=== PATIENT | female | born 2000 | race Caucasian/White ===

== ENCOUNTER 2022-07-20 14:09 | Outpatient (REF) | payer MEDICAID, SELFPAY ==
--- NOTE | ~2022-07-20 | XR_ITS ---
EXAMINATION: XR FOOT, LEFT CLINICAL INFORMATION: Left 3rd toe pain COMPARISON: None TECHNIQUE: AP, lateral, and oblique views of the left foot. FINDINGS: The bones and soft tissues are normal. No fracture. Alignment is anatomic. Joint spaces are maintained. XR/XR foot LT min 3V IMPRESSION: Normal left foot.
== END 2022-07-20 14:10 | disposition home or self-care (01) ==
LOC: HO.XRAY 14:09
PROVIDERS: PCP Registered Nurse; Visit Provider Registered Nurse
DX: M79.672 Pain in left foot (principal)
CPT/HCPCS: 73630

== ENCOUNTER 2023-02-08 11:26 | Outpatient (REF) | payer MEDICAID, SELFPAY ==
[2023-02-08 13:37] LABS: MANUAL DIFF FLAG NO
[2023-02-08 13:58] LABS: Basophils Absolute Auto 0.1 X10*3/uL (0.0-0.2); Eosinophils Absolute Auto 0.4 X10*3/uL (0.0-0.4); Eosinophils Percent Auto 8.8 % (0-4); Hematocrit 35.8 % (37.0-47.0); Imm Gran Abs Auto 0.01 X10*3/uL (0.00-0.03); Imm Gran Pct Auto 0.2 % (0.0-0.4); Lymphocytes Percent Auto 46.3 % (20-40); Mean Corpuscular HGB Conc 30.7 g/dl (31.0-35.0); Mean Corpuscular Hemoglobin 25.2 pg (27.0-33.0); Mean Corpuscular Volume 82.1 fL (80.0-98.0); Mean Platelet Volume 11.7 fL (9.4-12.3); Monocytes Absolute Auto 0.4 X10*3/uL (0.1-1.2); Monocytes Percent Auto 8.8 % (2-11); Neutrophils Absolute Auto 1.5 x10*3/uL (2.0-8.3); Neutrophils Percent Auto 33.9 % (45-73); Platelet Count 330 X10*3/uL (160-400); Red Blood Count 4.36 X10*6/uL (4.20-5.50); Red Cell Distribution Width 16.9 % (11.0-16.0); White Blood Count 4.4 X10*3/uL (4.8-10.8)
[2023-02-08 14:24] LABS: Alanine Aminotransferase 10 U/L (0-31); Albumin Level 4.3 g/dL (3.5-5.0); Alkaline Phosphatase 52 U/L (39-117); Anion Gap 15 (12-20); Aspartate Amino Transferase 13 U/L (5-31); Bilirubin Total 0.4 mg/dL (0.0-1.0); Blood Urea Nitrogen 10 mg/dL (9-16); Calcium 9.3 mg/dL (8.4-10.2); Carbon Dioxide 23 mmol/L (22-29); Chloride 105 mmol/L (96-108); Estimated Glomerular Filt Rate > 60; Glucose Random 53 mg/dL (60-115); Iron 35 mcg/dL (30-160); Percent Iron Saturation 9 % (15-50); Potassium 3.7 mmol/L (3.3-5.1); Sodium 139 mmol/L (135-145); Total Iron Binding Capacity 373 mcg/dL (228-428); Total Protein 7.7 g/dL (6.5-8.0); Unsaturated Iron Binding 338 ug/dL
== END 2023-02-08 11:27 | disposition home or self-care (01) ==
LOC: HO.HHCL 11:26
PROVIDERS: Visit Provider Registered Nurse
DX: D50.0 Iron deficiency anemia secondary to blood loss (chronic) (principal); R63.4 Abnormal weight loss
CPT/HCPCS: 36415; 80053; 83540; 85025

== ENCOUNTER 2024-09-10 14:55 | Outpatient (REF) | payer MEDICAID, SELFPAY ==
[2024-09-10 16:13] LABS: MANUAL DIFF FLAG NO
[2024-09-10 16:42] LABS: Basophils Absolute Auto 0.1 X10*3/uL (0.0-0.2); Basophils Percent Auto 1.8 % (0-2); Eosinophils Absolute Auto 0.6 X10*3/uL (0.0-0.4); Eosinophils Percent Auto 15.9 % (0-4); Hematocrit 34.1 % (37.0-47.0); Hemoglobin 10.5 g/dl (12.0-16.0); Imm Gran Abs Auto 0.01 X10*3/uL (0.00-0.03); Imm Gran Pct Auto 0.3 % (0.0-0.4); Lymphocytes Absolute Auto 1.5 X10*3/uL (1.2-4.9); Lymphocytes Percent Auto 38.5 % (20-40); Mean Corpuscular HGB Conc 30.8 g/dl (31.0-35.0); Mean Corpuscular Hemoglobin 24.8 pg (27.0-33.0); Mean Corpuscular Volume 80.4 fL (80.0-98.0); Mean Platelet Volume 11.7 fL (9.4-12.3); Monocytes Absolute Auto 0.4 X10*3/uL (0.1-1.2); Monocytes Percent Auto 9.4 % (2-11); Neutrophils Absolute Auto 1.3 x10*3/uL (2.0-8.3); Neutrophils Percent Auto 34.1 % (45-73); Platelet Count 248 X10*3/uL (160-400); Red Blood Count 4.24 X10*6/uL (4.20-5.50); White Blood Count 3.8 X10*3/uL (4.8-10.8)
[2024-09-10 17:04] LABS: Cholesterol 122 mg/dL (<200); HDL Cholesterol 52 mg/dL (>40); LDL Cholesterol Calculated 57 mg/dL (<100); Triglycerides 65 mg/dL (<150)
[2024-09-10 17:20] LABS: Ferritin 5 ng/mL (10-122)
--- OUTSIDE RECORDS SUMMARY | 2024-09-10 17:31 | XMS_ITS | Encounter Summary ---
Author Organization [employer] Address [address] 7[address] [place] [address] Care Team Providers Care Director Of Search Engine Marketing Name Role Phone [place] [facility] AUTOMOTIVE DETAILER Primary Care Provider [phone] Reason for Visit * Reason Comments Med Refill Encounter Details Date Type Department Care Team ([facility] st Contact Info) Description 05/02/2023 Refill [facility] [address] [place] [address] April Gaviria MD [address] [place], [place] [id number] Social History Tobacco Use Types Packs/Day Years Used Date Smoking Tobacco: Never Smokeless Tobacco: Never Alcohol Use Standard Drinks/Week Comments Never 0 (1 standard drink = 0.6 oz pur e alcohol) Alcohol Answer Date Recorded Frequency of Alcohol Consumption Not on file 04/06/2023 Average Number of Drinks Not on file 023 Frequency of Binge Drinking Not on file 03/27 Score 0 04/06/2023 Depression Answer Date Recorded Patient Health Questionnaire-9 Score 0 04/06/2023 Housing Stability Answer Date Recorded What is your housing situation today? I have leti harrison 04/18/[address] you li ve. Do you have problems with any of the following? None of the above 04/18/2023 Food Insecurity Answer Date Recorded Within the past 12 months, y ou worried that your food would run out before you got money to buy more: Never True 04/18/2023 Within the past 12 months,th e food you bought just didn't last and you didn't have enough money to get more: Never True Transportation Answer Date Recorded In the past 12 months, has l ack of transportation kept you from medical appts, meetings, work or from getting things needed for daily living? No 04/18/2023 Utilities Answer Date Recorded In the past 12 months, has t he electric, gas, oil or water company threatened to shut off services in your home? No 04/18/2023 Depression Answer Date Recorded Patient Health Questionnaire-2 Score 0 04/06/2023 Comments Unknown Sex and Gender Information Value Date Recorded Sex Assigned at Female 04/26/2022 10:18 AM EDT Legal Sex Female 10:18 AM EDT Gender Identity Female 04/26/2022 10:18 AM EDT Sexual Orientation Choose not to disclose 2021 10:18 AM EDT documented as of this encounter Plan of Treatment Not on file documented as of this encounter Visit Diagnoses Not on filedocumented in this encounter Additional Health Concerns Assessment Noted Time PHQ-9 Depression Total Score: 0 04/06/20 10:05 AM EDT documented as of this encounter Care Teams Director Of Search Engine Marketing Relationship Specialty Start Date End Date Carolina Rodriguez FNP [address] [place] [phone] PCP - General Family Medicine 01/20/22 documented as of this encounter
--- OUTSIDE RECORDS SUMMARY | 2024-09-10 17:31 | XMS_ITS | Encounter Summary ---
Author Organization [employer] Address [address] [facility] 7t [place] [address] Care Team Providers Care Suspender Maker Name Role Phone Carolina Rodriguez ENCODING CLERK Primary Care Provider [phone] Encounter Details Date Type Department Care Team (Late st Contact Info) Description 10/06/2022 Orders Only [facility] [address] [place], [place] [phone] Reena Landaverde LPN Social History Tobacco Use Types Packs/Day Years Used Date Smoking Tobacco: Never Smokeless Tobacco: Never Alcohol Use Standard Drinks/Week Comments Never 0 (1 standard drink = 0.6 oz pur e alcohol) PHQ-2 Answer Date Recorded Patient Health Questionnaire-2 Score 0 07/13/2022 Comments Unknown Sex and Gender Information Value [...] Noted Time PHQ-9 Depression Total Score: 0 07/13/19 23 2:17 PM EST documented as of this encounter Care Teams Suspender Maker Relationship Specialty Start Date End Date Carolina Rodriguez FNP [address] [place] [address] PCP - General Family Medicine 01/20/22 documented as of this encounter
--- OUTSIDE RECORDS SUMMARY | 2024-09-10 17:31 | XMS_ITS | Encounter Summary ---
Author Organization [employer] Address [address] 7[address] [place] [address] Care Team Providers Care Political Theory Professor Name Role Phone [facility] SECOND WORKER Primary Care Provider [phone] Encounter Details Date Type Department Care Team (Latest Contact Info) Description 09/10/2024 Travel Social History Tobacco Use Types Packs/Day Years [...] Date Recorded Patient Health Questionnaire-9 Score 0 09/10/2024 Patient Health Questionnaire-9 Score 0 09/10/2024 Last PHQ-9: Questionnaire Data Not on file 0 09/10/2024 Housing Stability Answer Date Recorded What is your housing situation today? I have leti christy 07/13/[address] you li ve. Do you have problems with any of the following? Pests such as bugs, ants, or mice 07/13/2023 Food Insecurity Answer Date Recorded Within the [...] Date Recorded Patient Health Questionnaire-2 Score 0 09/10/2024 Comments No Sex and Gender Information Value Date Recorded [...] Noted Time PHQ-9 Depression Total Score: 0 09/11/19 25 2:06 PM EDT documented as of this encounter Care Teams Political Theory Professor Relationship Specialty Start Date End Date Carolina Rodriguez FNP [address] [place] [address] PCP - General Family Medicine 01/20/22 documented as of this encounter
--- OUTSIDE RECORDS SUMMARY | 2024-09-10 17:31 | XMS_ITS | Encounter Summary ---
Author Organization [employer] Address [address] [facility] 7t [place] [address] Care Team Providers Care Cloud Systems Administrator Name Role Phone [facility] STORE STOCK HELP Primary Care Provider [phone] Reason for Visit * Reason Comments Med Refill Encounter Details Date Type Department Care Team ([facility] st Contact Info) Description 08/15/2024 Refill [facility] [address] [place] [address] Neida Craft MD [address] [place], [place] [phone] Ingrown toenail of left foot Social History Tobacco Use Types Packs/Day Years [...] Date Recorded Patient Health Questionnaire-9 Score 0 09/07/2023 Patient Health Questionnaire-9 Score 0 09/07/2023 Last PHQ-9: Questionnaire Data Not on file 0 09/07/2023 Housing Stability Answer Date Recorded What is your housing situation today? I have leti sing 07/13/[address] you li [...] Date Recorded Patient Health Questionnaire-2 Score 0 09/07/2023 Comments Unknown Sex and Gender Information Value Date Recorded Sex Assigned at Female 04/26/2022 10:18 AM EDT Legal Sex Female 10:18 AM EDT Gender Identity Female 04/26/2022 10:18 AM EDT Sexual Orientation Choose not to disclose 2021 10:18 AM EDT documented as of this encounter Plan of Treatment Not on file documented as of this encounter Visit Diagnoses Diagnosis Ingrown toenail of left foot documented in this encounter Additional Health Concerns Assessment Noted Time PHQ-9 Depression Total Score: 0 09/07/19 24 2:18 PM EDT documented as of this encounter Care Teams Cloud Systems Administrator Relationship Specialty Start Date End Date Carolina Rodriguez FNP [address] [place] [phone] PCP - General Family Medicine 01/20/22 documented as of this encounter
--- OUTSIDE RECORDS SUMMARY | 2024-09-10 17:31 | XMS_ITS | Encounter Summary ---
Author Organization [employer] Address [address] [facility] 7t [place] [address] Care Team Providers Care Speck Dyer Name Role Phone [facility] Primary Care Provider [phone] Reason for Visit * Reason Comments Pre-visit Planning (Unable to reach for PVP screening and or LVM) Encounter Details Date Type Department Care Team ([facility] st Contact Info) Description 09/03/2024 Patient Outreach [facility] [address] [place] [address] [facility] [address] [place] [address] Pre-visit Planning ((Unable to reach for PVP screening and or LVM)) Social History Tobacco Use Types Packs/Day Years [...] housing situation today? I have leti harrison 07/13/[address] you li [...] AM EDT documented as of this encounter Progress Notes * Ruthann Bautista - 09/03/2024 9:39 AM EDT CC Ruthann placed outbound call to patient to complete pre-visit planning. No answer at this time. Patient name and were not confirmed. CC unable to leave a voice message. documented in this encounter Plan of Treatment Not on file documented as of this encounter Visit Diagnoses Not on filedocumented in this encounter Additional Health Concerns Assessment Noted Time PHQ-9 Depression Total Score: 0 09/07/19 24 2:18 PM EDT documented as of this encounter Care Teams Speck Dyer Relationship Specialty Start Date End Date Carolina Rodriguez FNP [address] [place] [phone] PCP - General Family Medicine 01/20/22 documented as of this encounter
--- OUTSIDE RECORDS SUMMARY | 2024-09-10 17:31 | XMS_ITS | Clinical Summary ---
Author Organization [employer] Address [address] [facility] 7t [place] [address] Care Team Providers Care Research & Analytics Manager Name Role Phone [facility] Primary Care Provider [phone] Allergies No known active allergies Medications ferrous gluconate (Fergon) 324 (38 Fe) MG tabletIndicatio ns:Menorrhagia with regular cycle Take 1 tablet (324 mg) by mouth in the morning. 90 tablet 1 09/07/19 24 Active Arnuity Ellipta 100 MCG/ACT inhaler INHALE 1 PUFF BY MOUTH EVERY DAY AT THE SAME TIME RINSE MOUTH AFTER USING 30 each 08/15/19 25 Active cetirizine (ZyrTEC) 10 MG tabletIndicatio ns:Mild persistent asthma without complication Take 1 tablet (10 mg) by mouth at bedtime. TAKE 1 TABLET BY MOUTH EVERY DAY NEEDED FOR ALLERGIES 90 tablet 09/11/19 25 Active albuterol (Ventolin HFA) 108 (90 Base) MCG/ACT inhalerIndicati ons:Mild persistent asthma without complication INHALE 2 PUFFS BY MOUTH EVERY 4 HOURS NEEDED FOR WHEEZING OR SHORTNESS OF BREATH 18 g 09/11/19 25 Active cetirizine (ZyrTEC) 10 MG tablet Take 1 tablet (10 mg) by mouth at bedtime. TAKE 1 TABLET BY MOUTH EVERY DAY NEEDED FOR ALLERGIES 90 tablet 01/20/20 24 025 Discontinued(Re order (will not trigger notification to Pharmacy)) Arnuity Ellipta 100 MCG/ACT inhaler INHALE 1 PUFF BY MOUTH EVERY DAY AT THE SAME TIME. RINSE MOUTH AFTER USING. 13 each 02/17/20 24 025 Discontinued albuterol (Ventolin HFA) 108 (90 Base) MCG/ACT inhalerIndicati ons:Mild persistent asthma without complication INHALE 2 PUFFS BY MOUTH EVERY 4 HOURS NEEDED 18 g 02/17/20 24 025 Discontinued albuterol (Ventolin HFA) 108 (90 Base) MCG/ACT inhalerIndicati ons:Mild persistent asthma without complication INHALE 2 PUFFS BY MOUTH EVERY 4 HOURS NEEDED FOR WHEEZING OR SHORTNESS OF BREATH 18 g 08/15/19 25 025 Discontinued(Re order (will not trigger notification to Pharmacy)) Active Problems Problem Noted Date Diagnosed Date Allergic rhinitis 02/07/2023 Iron deficiency anemia 07/19/2022 Overview (07/19/2022): ?? Seen by Dr. Downs in heme/onc 01/2022 d/t reported family hx of bleeding disorer. Negative von willebrand work up. Per visit note low suspicion for coagulopathy and no further evaluation indicated. Menorrhagia with regular cycle 07/19/2022 Overview (09/07/2023): June07/16mcg daily-discontinued d/t side effects Oral iron supplementation Cognitive developmental delay 07/13/2022 Vitamin D deficiency 07/13/2022 Mild persistent asthma 09/11/2015 Overview (02/17/2023): ?? Flovent b.i.d ?? Albuterol PRN Encounters Date Type Department Care Team Description 09/10/2024 2:00 PM EDT Office Visit [facility] [address] [place] [address] Carolina Rodriguez FNP Iron deficiency anemia due to chronic blood loss (Primary Dx); Mild persistent asthma without complication; Healthcare maintenance; Encounter for immunization 09/10/2024 Travel 09/07/2024 Population Health Risk Score [facility] Department [address] [phone] Provider, Population Health Generic 09/03/2024 Patient Outreach [facility] [address] [place] [address] Carolina Rodriguez FNP Pre-visit Planning ((Unable to reach for PVP screening and or LVM)) 08/15/2024 Refill [facility] [address] [place] [address] Neida Craft MD Ingrown toenail of left foot 08/15/2024 Refill [facility] [address] [facility] [place] [address] Carolina Rodriguez FNP Mild persistent asthma without complication from Last 3 Months Immunizations Name Administration Dates Next Due DTaP, 5 pertussis antigens 05/26/2004,,01/03/2003,10/30,2002 HPV, Quadrivalent 06/11/2014,02/05/2014,12/07/19 14 Hep A, ped/adol, 2 dose 07/03/2015,08/01/2014 Hep B, Adolescent or Pediatric 8,01/03/2003,2002,10/30 Hib (HbO) 07/30/2003,2002,2002 IPV 05/26/2009, 3,2002,06/28 Influenza injectable quadriv alent preservative free 07/13/2022,07/07/2020,04/17/2018,07/26,07/03/2015,06/11/2014 Influenza, Split (incl. rebecca fied surface antigen) 04/18/2013 Influenza, seasonal, injecta ble, preservative free 09/10/2024 MMR 05/26/2009,05/28/2003 Meningococcal MCV4P ACYW-135 12/13/2018,07/03/19 16 Pneumococcal Conjugate PCV 7 2002,08/31/19 03,2002 Tdap 09/10/2024,12/06/2013 Varicella 05/26/2009,05/28/2003 Social History Tobacco Use Types Packs/Day Years Used Date Smoking Tobacco: Never Smokeless Tobacco: Never Tobacco Cessation:Counseling Given: Not Answered Alcohol Use Standard Drinks/Week Comments Never 0 [...] not to disclose 2021 10:18 AM EDT Last Filed Vital Signs Vital Sign Reading Time Taken Comments Blood Pressure 127/70 09/10/2024 2:00 PM EDT Pulse 85 09/10/2024 2:00 PM EDT Temperature 36.4 ??C (97.6 ??F) 09/10/2024 2:00 PM ED T Respiratory Rate 18 09/10/2024 2:00 PM EDT Oxygen Saturation 98% 09/10/2024 2:00 PM EDT Inhaled Oxygen Concentration - - Weight 53 kg (116 lb 12.8 oz) 09/10/2024 2:00 PM EDT Height 160 cm (5' 3 ) 09/10/2024 2:00 PM EDT Body Mass Index 20.69 09/10/2024 2:00 PM EDT Plan of Treatment Health Maintenance Due Date Last Done Comments Chlamydia and Gonorrhea Screening 2002 HIV Screening 2002 Alcohol/Substance Use Screening 2014 Family Planning (PISQ) 2017 Hepatitis C Screening 2020 Pneumococcal Vaccine: Pediatrics (0 to 5 Years) and At-Risk Patients (6 to 49) Years) (1 of 2 - PCV) 2021 2002, 2002, 2002 Pap Smear 2023 COVID-19 Vaccine ( season) 2024 08/11/2021, 12/09/2020, 11/11/2020 SDOH Screening 08/30/2024 08/31/2023 Depression Screening 09/10/2025 09/10/2024, 09/11/19 25 Tobacco Screening 09/10/2025 09/10/2024 DTaP/Tdap/Td Vaccines (7 - Td or Tdap) 09/10/2034 09/10/2024, 12/06/2013, 05/26/2004, Additional history exists Zoster Vaccines (1 of 2) 2052 RSV Patients and Patients Aged 60 years or older (1 - 1-dose 75+ series) 2077 HIB Vaccines Completed 07/30/2003, 11/2002, 2002 IPV Vaccines Completed 05/26/2009, 11/2002, 2002, Additional history exists HPV Vaccines Completed 06/11/2014, 01/25, 12/06/2013 Hepatitis A Vaccines Completed 07/03/2015, 08/01/19 15 Hepatitis B Vaccines Completed 04/17/2018, 01/03/2003, 2002, Additional history exists Meningococcal Vaccine Completed 12/13/2018, 016 Influenza Vaccine Completed 09/10/2024, , 07/07/2020, Additional history exists RSV under 20 months Aged Out No longe r eligible based on patient's age to complete this topic Rotavirus Vaccines Aged Out No longer eligible based on patient's age to complete this topic Procedures Procedure Name Priority Date/Time Associated Diagnosis Comments LIPID PANEL, STANDARD Routine 09/10/2024 2:58 PM EDT Healthcare maintenance FERRITIN Routine 09/10/2024 2:58 PM EDT Iron deficiency anemia due to chronic blood loss CBC WITH AUTO DIFFERENTIAL Routine 09/10/2024 2:58 PM EDT Iron deficiency anemia due to chronic blood loss from Last 3 Months Results * (ABNORMAL) CBC auto differential (09/10/2024 2:58 PM EDT) White Blood Count 3.8(L) 4.8 - 10.8 X10*3/uL [facility] Red Blood Count 4.24 4.20 - 5.50 X10*6/uL [facility] Hemoglobin 10.5(L) 12.0 - 16.0 g/dl [facility] Hematocrit 34.1(L) 37.0 - 47.0 % [facility] Mean Corpuscular Volume 80.4 80.0 - 98.0 fL [facility] Mean Corpuscular Hemoglobin 24.8(L) 27.0 - 33.0 pg [facility] Mean Corpuscular HGB Conc 30.8(L) 31.0 - 35.0 g/dl [facility] Red Cell Distribution Width 17.0(H) 11.0 - 16.0 % [facility] Platelet Count 248 160 - 400 X10*3/uL [facility] Mean Platelet Volume 11.7 9.4 - 12.3 fL [facility] Neutrophils Percent Auto 34.1(L) 45 - 73 % [facility] Imm Gran Pct Auto 0.3 0.0 - 0.4 % [facility] Lymphocytes Percent Auto 38.5 20 - 40 % [facility] Monocytes Percent Auto 9.4 2 - 11 % [facility] Eosinophils Percent Auto 15.9(H) 0 - 4 % [facility] Basophils Percent Auto 1.8 0 - 2 % [facility] NRBC Pct Auto 0.0 0.0 - 0.2 /100WBC [facility] Neutrophils Absolute Auto 1.3(L) 2.0 - 8.3 x10*3/uL [facility] Imm Gran Abs Auto 0.01 0.00 - 0.03 X10*3/uL [facility] Lymphocytes Absolute Auto 1.5 1.2 - 4.9 X10*3/uL [facility] Monocytes Absolute Auto 0.4 0.1 - 1.2 X10*3/uL [facility] Eosinophils Absolute Auto 0.6(H) 0.0 - 0.4 X10*3/uL [facility] Basophils Absolute Auto 0.1 0.0 - 0.2 X10*3/uL [facility] NRBC Abs Auto 0.000 0.0 - 0.012 X10*3/uL [facility] Blood Venous blood specimen / Unknown 09/10/2024 2:58 PM EDT 09/10/2024 4:09 PM EDT [facility] LAB BLOOD ORDERABLES Final Re sult Performing Organization Address City/[facility]/ZIP Co de Phone Number [facility] [address] [place] [phone] * (ABNORMAL) Ferritin (09/10/2024 2:58 PM EDT) Pathologist [facility] Ferritin 5(L) 10 - 122 ng/mL [facility] Blood Venous blood specimen / Unknown 09/10/2024 2:58 PM EDT 09/10/2024 4:00 PM EDT [facility] LAB BLOOD ORDERABLES Final Re sult Performing Organization Address City/[facility]/ZIP Co de Phone Number [facility] [address] [place] [phone] * Lipid Panel, Standard (09/10/2024 2:58 PM EDT) Pathologist [facility] Triglycerides 65 <150 mg/dL [facility] Comment:Desirable Triglyceri de: less than 150 mg/dLBorderline High Triglyceride 150-199 mg/dLHigh Triglyceride: 200-499 mg/dLVery High Triglyceride: greater than or equal to 5OO mg/dL Cholesterol 122 <200 mg/dL [facility] Comment:Desirable Cholestero l: less than 200 mg/dLBorderline High Cholesterol: 200-239 mg/dLHigh Cholesterol: greater than 239 mg/dL LDL Cholesterol Calculated 57 <100 mg/dL [facility] Comment:Desirable LDL: less than 100 mg/dLNear Optimal/Above Optimal LDL: 110- 129 mg/dLBorderline High LDL: 130-159 mg/dLHigh LDL: 160-189 mg/dLVery High LDL: greater than or equal to 190 mg/dL HDL Cholesterol 52 >40 mg/dL [facility] Comment:Desirable HDL: great er than 40 mg/dL Note: This HDL assay may give artificially low results in patients with liver disease. Blood Venous blood specimen / Unknown 09/10/2024 2:58 PM EDT 09/10/2024 4:00 PM EDT [facility] [employer] LAB BLOOD ORDERABLES Final Re sult [facility] [address] [place] [phone] from Last 3 Months [facility] Research & Analytics Manager Relationship Specialty Start Date End Date Carolina Rodriguez FNP [address] [place] [phone] PCP - General Family Medicine 01/20/22
--- OUTSIDE RECORDS SUMMARY | 2024-09-10 17:31 | XMS_ITS | Encounter Summary ---
Author Organization [employer] Address [address] [facility] 7t [place] [address] Care Team Providers Care Television Cable Installer Name Role Phone [place] MANAGER CHANGE Primary Care Provider [phone] Encounter Details Date Type Department Care Team ([facility] st Contact Info) Description 09/07/2024 Population Health Risk Score [facility] Care [facility] ([facility]) Department [address] [facility] [address] [place] [phone] Provider, Population Health Generic Social History Tobacco Use Types Packs/Day Years [...] documented as of this encounter Care Teams Television Cable Installer Relationship Specialty Start Date End Date Carolina Rodriguez FNP [address] [place] [phone] PCP - General Family Medicine 01/20/22 documented as of this encounter
--- OUTSIDE RECORDS SUMMARY | 2024-09-10 17:31 | XMS_ITS | Encounter Summary ---
Author Organization [employer] Address [address] [facility] 7t [place] [address] Care Team Providers Care Senior Java Programmer Analyst Name Role Phone [place] [facility] Primary Care Provider [phone] Reason for Visit * Reason Comments Annual Exam Encounter Details Date Type Department Care Team ([facility] st Contact Info) Description 09/10/2024 2:00 PM EDT Office Visit [facility] [address] [place] [address] [facility] [address] [place] [address] Iron deficiency anemia due to chronic blood loss (Primary Dx); Mild persistent asthma without complication; Healthcare maintenance; Encounter for immunization Social History Tobacco Use Types Packs/Day Years [...] the past 12 months, has t he [employer], gas, oil or water company threatened to [...] AM EDT documented as of this encounter Last Filed Vital Signs Vital Sign Reading [...] Mass Index 20.69 09/10/2024 2:00 PM EDT documented in this encounter Plan of Treatment Not on file documented as of this encounter Procedures Procedure Name Priority Date/Time Associated Diagnosis Comments CBC WITH AUTO DIFFERENTIAL Routine 09/10/2024 2:58 PM EDT Iron deficiency anemia due to chronic blood loss FERRITIN Routine 09/10/2024 2:58 PM EDT Iron deficiency anemia due to chronic blood loss LIPID PANEL, STANDARD Routine 09/10/2024 2:58 PM EDT Healthcare maintenance documented in this encounter Results * Lipid Panel, Standard (09/10/2024 2:58 PM EDT) Triglycerides 65 <150 mg/dL [facility] Comment:Desirable Triglyceri de: less than 150 mg/dLBorderline High Triglyceride 150-199 mg/dLHigh Triglyceride: 200-499 mg/dLVery High Triglyceride: greater than or equal to 5OO mg/dL Cholesterol 122 <200 mg/dL [facility] Comment:Desirable Cholestero l: less than 200 mg/dLBorderline High Cholesterol: 200-239 mg/dLHigh Cholesterol: greater than 239 mg/dL LDL Cholesterol Calculated 57 <100 mg/dL [facility] Comment:Desirable LDL: less than 100 mg/dLNear Optimal/Above Optimal LDL: 110- 129 mg/dLBorderline High LDL: 130-159 mg/dLHigh LDL: 160-189 mg/dLVery High LDL: greater than or equal to 190 mg/dL HDL Cholesterol 52 >40 mg/dL [facility] Comment:Desirable HDL: great er than 40 mg/dL Note: This HDL assay may give artificially low results in patients with liver disease. Blood Venous blood specimen / Unknown 09/10/2024 2:58 PM EDT 09/10/2024 4:00 PM EDT [facility] LAB BLOOD ORDERABLES Final Re sult [facility] [address] [place] [phone] * (ABNORMAL) Ferritin (09/10/2024 2:58 PM EDT) Ferritin 5(L) 10 - 122 ng/mL [facility] Blood Venous blood specimen / Unknown 09/10/2024 2:58 PM EDT 09/10/2024 4:00 PM EDT [facility] LAB BLOOD ORDERABLES Final Re sult [facility] [address] [place], [place] [phone] * (ABNORMAL) CBC auto differential (09/10/2024 2:58 PM EDT) White Blood Count 3.8(L) 4.8 - 10.8 X10*3/uL [facility] Red Blood Count 4.24 4.20 - 5.50 X10*6/uL [facility] Hemoglobin 10.5(L) 12.0 - 16.0 g/dl [facility] Hematocrit 34.1(L) 37.0 - 47.0 % [facility] Mean Corpuscular Volume 80.4 80.0 - 98.0 fL [facility] Mean Corpuscular Hemoglobin 24.8(L) 27.0 - 33.0 pg [facility] Mean Corpuscular HGB Conc 30.8(L) 31.0 - 35.0 g/dl [facility] Red Cell Distribution Width 17.0(H) 11.0 - 16.0 % [facility] Platelet Count 248 160 - 400 X10*3/uL [facility] Mean Platelet Volume 11.7 9.4 - 12.3 fL [facility] Neutrophils Percent Auto 34.1(L) 45 - 73 % [facility] Imm Gran Pct Auto 0.3 0.0 - 0.4 % [facility] Lymphocytes Percent Auto 38.5 20 - 40 % [facility] Monocytes Percent Auto 9.4 2 - 11 % [facility] Eosinophils Percent Auto 15.9(H) 0 - 4 % [facility] Basophils Percent Auto 1.8 0 - 2 % [facility] NRBC Pct Auto 0.0 0.0 - 0.2 /100WBC [facility] Neutrophils Absolute Auto 1.3(L) 2.0 - 8.3 x10*3/uL [facility] Imm Gran Abs Auto 0.01 0.00 - 0.03 X10*3/uL [facility] Lymphocytes Absolute Auto 1.5 1.2 - 4.9 X10*3/uL [facility] Monocytes Absolute Auto 0.4 0.1 - 1.2 X10*3/uL [facility] Eosinophils Absolute Auto 0.6(H) 0.0 - 0.4 X10*3/uL [facility] Basophils Absolute Auto 0.1 0.0 - 0.2 X10*3/uL [facility] NRBC Abs Auto 0.000 0.0 - 0.012 X10*3/uL [facility] Blood Venous blood specimen / Unknown 09/10/2024 2:58 PM EDT 09/10/2024 4:09 PM EDT [facility] LAB BLOOD ORDERABLES Final Re sult [facility] [address] [place] [phone] documented in this encounter Visit Diagnoses Diagnosis Iron deficiency anemia due to chronic blood loss- Primary Iron deficiency anemia secondary to blood loss (chronic) Mild persistent asthma without complication Healthcare maintenance Encounter for immunization documented in this encounter Additional Health Concerns Assessment Noted Time PHQ-9 Depression Total Score: 0 09/11/19 25 2:06 PM EDT documented as of this encounter Care Teams Senior Java Programmer Analyst Relationship Specialty Start Date End Date [facility] [address] [place] [phone] PCP - General Family Medicine 01/20/22 documented as of this encounter
--- OUTSIDE RECORDS SUMMARY | 2024-09-10 17:31 | XMS_ITS | Encounter Summary ---
Author Organization [employer] Address [address] [facility] 7t [place] [address] Care Team Providers Care Steam Shovel Operating Engineer Name Role Phone [employer] Primary Care Provider [phone] Reason for Visit * Reason Comments Med Refill Encounter Details Date Type Department Care Team ([facility] st Contact Info) Description 08/15/[address] [facility] MED[facility]INE [address] [place], [place] [phone] [facility] [address] [place] [address] Mild persistent asthma without complication Social History Tobacco Use Types Packs/Day Years [...] as of this encounter Visit Diagnoses Diagnosis Mild persistent asthma without complication documented in this encounter Additional Health Concerns Assessment Noted Time PHQ-9 Depression Total Score: 0 09/07/19 24 2:18 PM EDT documented as of this encounter Care Teams Steam Shovel Operating Engineer Relationship Specialty Start Date End Date Carolina Rodriguez FNP [address] [place] [phone] PCP - General Family Medicine 01/20/22 documented as of this encounter
== END 2024-09-10 14:56 | disposition home or self-care (01) ==
LOC: HO.HHCL 14:55
PROVIDERS: Visit Provider Registered Nurse
DX: Z00.00 Encounter for general adult medical examination without abnormal findings (principal); D50.0 Iron deficiency anemia secondary to blood loss (chronic)
CPT/HCPCS: 36415; 80061; 82728; 85025

== ENCOUNTER 2025-03-26 10:12 | Outpatient (REF) | payer MEDICAID, SELFPAY ==
--- OUTSIDE RECORDS SUMMARY | 2025-03-26 11:15 | XMS_ITS | Encounter Summary ---
Author Organization [employer] Address [address] [facility] 7t [place] [address] Care Team Providers Care Counter Waiter Name Role Phone [place] DEALER COMPLIANCE REPRESENTATIVE Primary Care Provider Reason for Visit * Reason Comments Med Refill Encounter Details Date Type Department Care Team ([facility] st Contact Info) Description 05/02/2023 Refill [facility] [address] [place] [address] April Gaviria MD [address] [place] [address] Social History Tobacco Use Types Packs/Day Years [...] documented as of this encounter Care Teams Counter Waiter Relationship Specialty Start Date End Date Carolina Rodriguez FNP [address] [place] [phone] PCP - General Family Medicine 01/20/22 documented as of this encounter
--- OUTSIDE RECORDS SUMMARY | 2025-03-26 11:15 | XMS_ITS | Clinical Summary ---
Author Organization [employer] Address [address] [facility] 7t [place] [address] Care Team Providers Care Spray Booth Operator Name Role Phone [facility] Primary Care Provider [phone] Allergies No known active allergies Medications ferrous gluconate (Fergon) 324 (38 Fe) MG tabletIndications :Menorrhagia with regular cycle Take 1 tablet (324 mg) by mouth in the morning. 90 tablet 1 5 Active cetirizine (ZyrTEC) 10 MG tabletIndications :Mild persistent asthma without complication TAKE 1 TABLET BY MOUTH EVERY DAY NEEDED FOR ALLERGIES 90 tablet 5 Active albuterol (Ventolin HFA) 108 (90 Base) MCG/ACT inhalerIndication s:Mild persistent asthma without complication INHALE 2 PUFFS BY MOUTH EVERY 4 HOURS NEEDED FOR WHEEZING OR SHORTNESS OF BREATH 18 g 5 Active Arnuity Ellipta 100 MCG/ACT inhaler INHALE 1 PUFF BY MOUTH EVERY DAY AT THE SAME TIME RINSE MOUTH AFTER USING 30 each 5 Active Active Problems Problem Noted Date Diagnosed Date Allergic rhinitis 02/07/2023 Iron deficiency anemia 07/19/2022 Overview (07/19/2022): Seen by Dr. Downs in heme/onc 01/2022 d/t reported family hx of bleeding disorer. Negative von willebrand work up. Per visit note low suspicion for coagulopathy and no further evaluation indicated. Menorrhagia with regular cycle 07/19/2022 Overview (09/07/2023): Junel Fe /20mcg daily-discontinued d/t side effects Oral iron supplementation Cognitive developmental delay 07/13/2022 Vitamin D deficiency 07/13/2022 Mild persistent asthma 09/11/2015 Overview (02/17/2023): Flovent b.i.d Albuterol PRN Encounters Date Type Department Care Team Description 03/26/2025 Telephone [facility] [address] [place] [address] Carolina Rodriguez [facility] Tspot request 02/13/2025 Refill [facility] [address] [place] [address] Neida Craft MD Mild persistent asthma without complication 01/04/2025 Refill [facility] [address] [place], [place] [phone] Carolina Rodriguez [facility] Mild persistent asthma without complication 01/04/2025 Refill [facility] [address] [place], [place] [phone] Natalia Carlson MD Mild persistent asthma without complication from Last 3 Months Immunizations Immunization Administration Dates Next Due DTaP, 5 pertussis antigens 05/26/2004,,01/03/2003,10/30,2002 HPV, Quadrivalent 06/11/2014,02/05/2014,12/07/19 14 Hep A, ped/adol, 2 dose 07/03/2015,08/01/2014 Hep B, Adolescent or Pediatric 8,01/03/2003,2002,10/30 Hib (HbOC) 07/30/2003,2002,2002 IPV 05/26/2009, 3,2002,06/28 Influenza injectable quadriv [...] EDT Sexual Orientation Choose not to disclose 10/31/ 2022 10:18 AM EDT Last Filed Vital Signs Vital Sign Reading Time Taken Comments Blood Pressure 127/70 09/10/2024 2:00 PM EDT Pulse 85 09/10/2024 2:00 PM EDT Temperature 36.4 C (97.6 F) 09/10/2024 2:00 PM EDT Respiratory Rate 18 09/10/2024 2:00 PM EDT [...] and Gonorrhea Screening 2002 HIV Screening 2002 Disability Screening 2002 Alcohol/Substance Use Screening 2014 Family Planning (PISQ) 2017 Meningococcal B Vaccine (1 of 2 - Standard) 2018 Hepatitis C Screening 2020 Pneumococcal Vaccine: Pediatrics (0 to 5 Years) and At-Risk Patients (6 to 49) Years (1 of 2 - PCV) 2021 2002, 2002, 2002 Pap Smear 2023 SDOH Screening 08/30/2024 08/31/2023 COVID-19 Vaccine ( season) 2025 08/11/2021, 12/09/2020, 11/11/2020 Influenza Vaccine (#1) 2025 , 07/13/2022, 07/07/2020, Additional history exists Depression Screening 09/10/2025 09/10/2024, 09/11/19 25 Tobacco Screening 09/12/2025 09/12/2024 DTaP/Tdap/Td Vaccines (7 - Td or Tdap) [...] history exists Meningococcal Vaccine Completed 12/13/2018, 016 RSV under 20 months Aged Out No longe r eligible based on patient's age to complete this topic Rotavirus Vaccines Aged Out No longer eligible based on patient's age to complete this topic [facility] Care Teams Spray Booth Operator Relationship Specialty Start Date End Date Carolina Rodriguez FNP [address] [place] [phone] PCP - General Family Medicine 7/27/22
--- OUTSIDE RECORDS SUMMARY | 2025-03-26 11:15 | XMS_ITS | Encounter Summary ---
Author Organization [employer] Address [address] [facility] 7t [place] [address] Care Team Providers Care Buffet Runner Name Role Phone [place] PRODUCT DESIGNER Primary Care Provider [phone] Reason for Visit * Reason Comments Med Refill Encounter Details Date Type Department Care Team ([facility] st Contact Info) Description 08/15/2024 Refill [facility] MEDICINE [address] [place] [address] Neida Craft MD [address] [place] [address] Ingrown toenail of left foot Social History [...] documented as of this encounter Care Teams Buffet Runner Relationship Specialty Start Date End Date Carolina Rodriguez FNP [address] [place] [phone] PCP - General Family Medicine 01/20/22 documented as of this encounter
--- OUTSIDE RECORDS SUMMARY | 2025-03-26 11:15 | XMS_ITS | Encounter Summary ---
Author Organization [employer] Address [address] [facility] 7t [place] [address] Care Team Providers Care Drying Can Worker Name Role Phone Carolina Rodriguez ELECTRICAL TECH Primary Care Provider [phone] Encounter Details Date Type Department Care Team (Late st Contact Info) Description 10/06/2022 Orders Only [facility] [address] [place], [place] [phone] Reena Landaverde LPN Social History Tobacco Use [...] documented as of this encounter Care Teams Drying Can Worker Relationship Specialty Start Date End Date Carolina Rodriguez FNP [address] [place] [phone] PCP - General Family Medicine 01/20/22 documented as of this encounter
--- OUTSIDE RECORDS SUMMARY | 2025-03-26 11:15 | XMS_ITS | Encounter Summary ---
Author Organization [employer] Address [address] [facility] 7t [place] [address] Care Team Providers Care Copying Machine Repairer Name Role Phone [facility] Primary Care Provider [phone] Reason for Visit * Reason Onset Date Comments Tspot request 03/26/2025 Encounter Details Date Type Department Care Team ([facility] st Contact Info) Description 03/26/2025 Telephone [facility] MED[facility]INE [address] [place] [address] [facility] [address] [place] [address] Tspot request Social History Tobacco Use Types Packs/Day Years [...] AM EDT documented as of this encounter Miscellaneous Notes * Telephone Encounter - Cathy Alvarado RN - 03/26/2025 8:47 AM EDT RN received incoming call from forms RN's requesting a Tspot order for [facility] healthcare[facility]. RN has placed Tspot order and forms RN's will inform the patient. documented in this encounter Plan of Treatment Scheduled Orders Name Type Priority Associated Diagnoses Orde r Schedule T-SPOT .TB Lab Routine Encounter for screening for respiratory tuberculosis Expected: 03/26/2025 (Approximate), Expires: 03/26/2026 documented as of this encounter Visit Diagnoses Diagnosis Encounter for screening for respiratory tuberculosis documented in this encounter Additional Health Concerns Assessment Noted Time PHQ-9 Depression Total Score: 0 09/11/19 25 2:06 PM EDT documented as of this encounter Care Teams Copying Machine Repairer Relationship Specialty Start Date End Date Carolina Rodriguez FNP [address] [place] [address] PCP - General Family Medicine 01/20/22 documented as of this encounter
[2025-03-29 00:19] LABS: TS Negative Control Passed; TS Panel A 4; TS Panel B 0; TS Positive Control Passed; TSpotTB Negative (Negative)
== END 2025-03-26 10:13 | disposition home or self-care (01) ==
LOC: HO.HHCL 10:12
PROVIDERS: PCP Registered Nurse; Visit Provider Registered Nurse
DX: Z11.1 Encounter for screening for respiratory tuberculosis (principal)
CPT/HCPCS: 36415; 86481

== ENCOUNTER 2025-05-20 13:39 | Outpatient (REF) | payer MEDICAID, SELFPAY ==
--- OUTSIDE RECORDS SUMMARY | 2025-05-20 11:45 | XMS_ITS | Encounter Summary ---
Author Organization [employer] Address [address] [facility] [address]t [place] [address] Care Team Providers Care Engagement Engineer Name Role Phone Jennifer Carolina CONDEMNATION ENGINEER Primary Care Provider [phone] Reason for Visit * Reason Comments sick visit Encounter Details Date Type Department Care Team ([facility] st Contact Info) Description 05/20/2025 11:45 AM EST Office Visit [facility] [address] [place] [address] Reena Lacy DO [address] [place], [place] [id number] Dizziness (Primary Dx) Social History Tobacco Use Types Packs/Day Years [...] Sign Reading Time Taken Comments Blood Pressure 110/64 05/20/2025 11:46 AM EST Pulse 60 05/20/2025 11:46 AM EST Temperature 37.2 C (98.9 F) 05/20/2025 11:46 AM EST Respiratory Rate 20 05/20/2025 11:46 AM EST Oxygen Saturation 98% 05/20/2025 11:46 AM EST Inhaled Oxygen Concentration - - Weight 52.7 kg (116 lb 3.2 oz) 05/20/2025 11:46 AM EST Height 160 cm (5' 3 ) 05/20/2025 11:46 AM EST Body Mass Index 20.58 05/20/2025 11:46 AM EST documented in this encounter Progress Notes * Reena Lacy, DO - 05/20/2025 11:45 AM EST SUBJECTIVE: Elsa Clark is a 25 y.o. year old female who is patient of [facility] presents for sick visit. HPI She called last week c/o intermittent dizziness for a few days. She declined evaluation in [place] and requested appointment with her PCP. - Experienced episodes last weekend - Dizziness described as feeling lightheaded, off balance, and unable to breathe - Associated with heart racing during episodes - Each episode lasted a few minutes and resolved spontaneously - Occurred multiple times a day during the symptomatic period - Dizziness started after completion of menstrual period; period had just finished before onset - No dizziness in the last few days since requesting appt - Denies runny nose or stuffy nose during episodes - On the day of dizziness, did not eat anything and stayed home - Drank water during episode to see if symptoms would improve Menstrual history - Most recent period finished just before onset of dizziness - Reports sometimes having heavy periods with a lot of bleeding Fatigue and pica - Mother reports always sleeping and frequently eating ice - Not consistently taking prescribed iron pills prior to the encounter; she says that she forgets to take her pills Review of Systems Constitutional: Negative for chills and fever. HENT: Negative for congestion and sore throat. Eyes: Negative for visual disturbance. Respiratory: Negative for cough and shortness of breath. Cardiovascular: Negative for chest pain and leg swelling. Gastrointestinal: Negative for abdominal pain, diarrhea and vomiting. Neurological: Negative for dizziness, numbness and headaches. Patient Active Problem List Diagnosis Cognitive developmental delay Mild persistent asthma Vitamin D deficiency Iron deficiency anemia Menorrhagia with regular cycle Allergic rhinitis No Known Allergies OBJECTIVE Vitals: 05/20/25 1146 BP: 110/64 BP Location: Left arm Patient Position: Sitting BP Cuff Size: Large adult Pulse: 60 Resp: 20 Temp: 98.9 ??F (37.2 ??C) TempSrc: Oral SpO2: 98% Weight: 116 lb 3.2 oz (52.7 kg) Height: 5' 3 (1.6 m) Physical Exam Constitutional: General: She is not in acute distress. Appearance: Normal appearance. HENT: Right Ear: Tympanic membrane, ear canal and external ear normal. Left Ear: Tympanic membrane, ear canal and external ear normal. Nose: No congestion or rhinorrhea. Mouth/Throat: Pharynx: No oropharyngeal exudate or posterior oropharyngeal erythema. Eyes: Extraocular Movements: Extraocular movements intact. Conjunctiva/sclera: Conjunctivae normal. Pupils: Pupils are equal, round, and reactive to light. Cardiovascular: Rate and Rhythm: Normal rate and regular rhythm. Heart sounds: Normal heart sounds. No murmur heard. Pulmonary: Effort: Pulmonary effort is normal. Breath sounds: Normal breath sounds. No wheezing or rhonchi. Musculoskeletal: Cervical back: Normal range of motion and neck supple. No tenderness. Lymphadenopathy: Cervical: No cervical adenopathy. Neurological: General: No focal deficit present. Mental Status: She is alert and oriented to person, place, and time. Cranial Nerves: No cranial nerve deficit. Motor: No weakness. Gait: Gait normal. Psychiatric: Mood and Affect: Mood normal. Office Visit on 05/20/2025 Component Date Value Ref Range Status Preg Test, Ur 05/20/2025 Negative Negative, Indeterminate, None Detected, Trace, 3+, Specimen unsatisfactory for evaluation, Weakly Positive, 1+, 2+ Final QC Media Lot # 05/20/2025 [id number] Final Lot# Expiration Date 05/20/2025 1,312,027 Final ASSESSMENT/PLAN Diagnoses and all orders for this visit: Dizziness Likely 2/2 underlying anemia, currently resolved -provided reassurance -d/w pt and mom importance of eating regular meals and staying well hydrated -encouraged iron supplementation daily -repeat CBC with iron studies -consider evaluation with hematology if unable to tolerate PO iron -advised contact [facility] if symptoms recur, she and mom agree with plans - Vitamin B12 (Cobalamin) and Folate Panel, Serum; Future - Ferritin; Future - Iron And Total Iron Binding Capacity; Future - Vitamin D, 25-Hydroxy, Total, Immunoassay; Future - TSH; Future - T4, Free; Future - Basic Metabolic Panel; Future - CBC auto differential; Future - POCT Urine F/U with PCP as scheduled or sooner prn Current Outpatient Medications: albuterol (Ventolin HFA) 108 (90 Base) MCG/ACT inhaler, INHALE 2 PUFFS BY MOUTH EVERY 4 HOURS NEEDED FOR WHEEZING OR SHORTNESS OF BREATH, Disp: 18 g, Rfl: 0 Arnuity Ellipta 100 MCG/ACT inhaler, INHALE 1 PUFF BY MOUTH EVERY DAY AT THE SAME TIME RINSE MOUTH AFTER USING, Disp: 30 each, Rfl: 0 cetirizine (ZyrTEC) 10 MG tablet, TAKE 1 TABLET BY MOUTH EVERY DAY NEEDED FOR ALLERGIES, Disp: 90 tablet, Rfl: 0 ferrous gluconate (Fergon) 324 (38 Fe) MG tablet, TAKE 1 TABLET BY MOUTH EVERY DAY IN THE MORNING, Disp: 90 tablet, Rfl: 1 This note was drafted using Ambient (AI) technology. The patient/patient's guardian has been informed and has consented to the use of this technology: Yes documented in this encounter Plan of Treatment Upcoming Encounters Date Type Department Care Team (Late st Contact Info) Description 07/08/2025 9:15 AM EST Procedure Visit [facility] [address] [facility] [place] [id number] Carolina Rodriguez CONDEMNATION ENGINEER [address] [facility] [place] [address] documented as of this encounter Procedures Procedure Name Priority Date/Time Associated Diagnosis Comments VITAMIN D,25-OH,TOTAL,IA Routine 05/20/2025 1:44 PM EST Dizziness VITAMIN B12/FOLATE, SERUM PANEL Routine 05/20/2025 1:44 PM EST Dizziness CBC WITH AUTO DIFFERENTIAL Routine 05/20/2025 1:44 PM EST Dizziness IRON AND TOTAL IRON BINDING CAPACITY Routine 05/20/2025 1:44 PM EST Dizziness TSH Routine 05/20/2025 1:44 PM EST Dizziness T4, FREE Routine 05/20/2025 1:44 PM EST Dizziness FERRITIN Routine 05/20/2025 1:44 PM EST Dizziness BASIC METABOLIC PANEL Routine 05/20/2025 1:44 PM EST Dizziness POCT , URINE Routine 05/20/2025 12:18 PM EST Dizziness documented in this encounter Results * (ABNORMAL) CBC auto differential (05/20/2025 1:44 PM EST) White Blood Count 4.7(L) 4.8 - 10.8 X10*3/uL [facility] Red Blood Count 4.08(L) 4.20 - 5.50 X10*6/uL [facility] Hemoglobin 10.5(L) 12.0 - 16.0 g/dl [facility] Hematocrit 34.3(L) 37.0 - 47.0 % [facility] Mean Corpuscular Volume 84.1 80.0 - 98.0 fL [facility] Mean Corpuscular Hemoglobin 25.7(L) 27.0 - 33.0 pg [facility] Mean Corpuscular HGB Conc 30.6(L) 31.0 - 35.0 g/dl [facility] Red Cell Distribution Width 14.8 11.0 - 16.0 % [facility] Platelet Count 317 160 - 400 X10*3/uL [facility] Mean Platelet Volume 11.8 9.4 - 12.3 fL [facility] Neutrophils Percent Auto 27.3(L) 45 - 73 % [facility] Imm Gran Pct Auto 0.2 0.0 - 0.4 % [facility] Lymphocytes Percent Auto 50.1(H) 20 - 40 % [facility] Monocytes Percent Auto 9.3 2 - 11 % [facility] Eosinophils Percent Auto 11.0(H) 0 - 4 % [facility] Basophils Percent Auto 2.1(H) 0 - 2 % [facility] NRBC Pct Auto 0.0 0.0 - 0.2 /100WBC [facility] Neutrophils Absolute Auto 1.3(L) 2.0 - 8.3 x10*3/uL [facility] Imm Gran Abs Auto 0.01 0.00 - 0.03 X10*3/uL [facility] Lymphocytes Absolute Auto 2.4 1.2 - 4.9 X10*3/uL [facility] Monocytes Absolute Auto 0.4 0.1 - 1.2 X10*3/uL [facility] Eosinophils Absolute Auto 0.5(H) 0.0 - 0.4 X10*3/uL [facility] Basophils Absolute Auto 0.1 0.0 - 0.2 X10*3/uL [facility] NRBC Abs Auto 0.000 0.0 - 0.012 X10*3/uL [facility] Blood Venous blood specimen / Unknown 05/20/2025 1:44 PM EST 05/20/2025 3:57 PM EST Reena Lacy LAB BLOOD ORDERABLES Final R esult Performing Organization Address [facility] Co de Phone Number [facility] [address] [place] [address] [phone] * Basic Metabolic Panel (05/20/2025 1:44 PM EST) Pathologist [facility] Sodium 142 135 - 145 mmol/L [facility] Potassium 3.6 3.3 - 5.1 mmol/L [facility] Chloride 106 96 - 108 mmol/L [facility] Carbon Dioxide 26 22 - 29 mmol/L [facility] Anion Gap 14 12 - 20 [facility] Urea Nitrogen (BUN) 10 9 - 16 mg/dL [facility] Creatinine, Serum 0.79 0.5 - 1.4 mg/dL [facility] Estimated Glomerular Filt Rate >60 [facility] Comment:Chronic Kidney Disea se: Estimated GFR < 60 mL/min/1.02i5Diekwn Kidney Disease: Estimated GFR < 15 mL/min/1.73m2 Glucose 64 60 - 115 mg/dL [facility] Calcium 9.1 8.4 - 10.2 mg/dL [facility] Blood Venous blood specimen / Unknown 05/20/2025 1:44 PM EST 05/20/2025 3:57 PM EST Reena Lacy DO LAB BLOOD ORDERABLES Final R esult Performing Organization Address City/[facility]/ZIP Co de Phone Number [facility] [address] [place] [address] [phone] * T4, Free (05/20/2025 1:44 PM EST) Free T4 (Free Thyroxine) 1.14 0.71 - 1.85 ng/dL [facility] Blood Venous blood specimen / Unknown 05/20/2025 1:44 PM EST 05/20/2025 3:57 PM EST Reena Lacy DO LAB BLOOD ORDERABLES Final R esult Performing Organization Address City/[facility]/ZIP Co de Phone Number [facility] [address] [place] [phone] * TSH (05/20/2025 1:44 PM EST) Thyroid Stimulating Hormone 0.86 0.32 - 4.0 uIU/mL [facility] Comment:TSH 3rd Generation ( [facility]) Blood Venous blood specimen / Unknown 05/20/2025 1:44 PM EST 05/20/2025 3:57 PM EST Reena Lacy LAB BLOOD ORDERABLES [facility] Performing Organization Address [facility] Co de Phone Number [facility] [address] [place] [phone] * (ABNORMAL) Vitamin D, 25-Hydroxy, Total, Immunoassay (05/20/2025 1:44 PM EST) Vitamin D 25-OH Total 12.4(L) >30 ng/mL [facility] Comment: Health Based Reference Values*< 20 ng/mL [id number] ng/mL Insufficient> 30 ng/mL Sufficient*Kike HATCH. N Engl J Med. 2007;357:266-280There is no well-established upper level of normal vitamin Dlevels. Some laboratories use 50 ng/mL as an upper limit ofnormal. However, toxicity is patient-dependent and may occurat any level. Careful correlation with the patient'spresentation is necessary and, if there is concern forvitamin D toxicity, treatment should be consideredirrespective of the serum level.Care must be taken in interpreting Vitamin D results fromdifferent laboratories and methodologies. Published datademonstrated that results from patients undergoinghemodialysis may show a negative bias when tested withvarious automated 25-OH vitamin D assays when compared toLC-MS/MS.When testing samples from patients whose predominant form ofVitamin D is Vitamin D2, such as patients receiving VitaminD2 supplementation, results that are subtherapeutic shouldbe confirmed with another method such as LC-MS/MS. Blood Venous blood specimen / Unknown 05/20/2025 1:44 PM EST 05/20/2025 3:57 PM EST Reena Lacy DO LAB BLOOD ORDERABLES Final R esult Performing Organization Address [facility] Co de Phone Number [facility] [address] [place] [phone] * (ABNORMAL) Iron And Total Iron Binding Capacity (05/20/2025 1:44 PM EST) Iron 35 30 - 160 mcg/dL [facility] Total Iron Binding Capacity 394 228 - 428 mcg/dL [facility] Percent Iron Saturation 9(L) 15 - 50 % [facility] Unsaturated Iron Binding 359 ug/dL [facility] Blood Venous blood specimen / Unknown 05/20/2025 1:44 PM EST 05/20/2025 3:57 PM EST Reena Lacy DO LAB BLOOD ORDERABLES Final R esult Performing Organization Address [facility] Co de Phone Number [facility] [address] [place] [phone] * (ABNORMAL) Ferritin (05/20/2025 1:44 PM EST) Ferritin 5(L) 10 - 122 ng/mL [facility] Blood Venous blood specimen / Unknown 05/20/2025 1:44 PM EST 05/20/2025 3:57 PM EST Reena Lacy DO LAB BLOOD ORDERABLES Final R esult Performing Organization Address [facility] Co de Phone Number [facility] [address] [place] [phone] * Vitamin B12 (Cobalamin) and Folate Panel, Serum (05/20/2025 1:44 PM EST) Vitamin B12 414 200 - 900 pg/mL [facility] Comment:NORMAL 200-900 PG/ML INDETERMINATE 160-199 PG/ML DEFICIENT < 160 PG/ML Folate 10.9 > or = 4.0 ng/mL [facility] Comment:Reference Values:> o r = 4.0 ng/mL< 4.0 ng/mL suggests folate deficiency Methotrexate, aminopterin and folinic acid(leucovorin) are chemotherapeutic agents whose molecularstructures are similar to folate; therefore, the Architectfolate assay cannot be used for patients using these drugs. Blood 05/20/2025 1:44 PM EST 05/20/2025 3:57 PM EST Reena Lacy DO LAB BLOOD ORDERABLES Final R esult [facility] [address] [place] [phone] * POCT Urine (05/20/2025 12:18 PM EST) Preg Test, Ur Negative Negative, Indeterminate, None Detected, Trace, 3+, Specimen unsatisfactory for evaluation, Weakly Positive, 1+, 2+ QC Media Lot # [id number] Lot# Expiration Date [id number] Urine 05/20/2025 12:1 8 PM EST Reena Lacy DO POINT OF CARE TEST ENTER/PRINCE T ORDERABLES Final Result documented in this encounter Visit Diagnoses Diagnosis Dizziness- Primary Dizziness and giddiness documented in this encounter Additional Health Concerns Assessment Noted Time PHQ-9 Depression Total Score: 0 09/11/19 25 2:06 PM EDT documented as of this encounter Care Teams Engagement Engineer Relationship Specialty Start Date End Date Carolina Rodriguez FNP [address] [place] [phone] PCP - General Family Medicine 01/20/22 documented as of this encounter
[2025-05-20 16:02] LABS: MANUAL DIFF FLAG NO
[2025-05-20 16:10] LABS: Hematocrit 34.3 % (37.0-47.0); Hemoglobin 10.5 g/dl (12.0-16.0); Imm Gran Abs Auto 0.01 X10*3/uL (0.00-0.03); Imm Gran Pct Auto 0.2 % (0.0-0.4); Lymphocytes Absolute Auto 2.4 X10*3/uL (1.2-4.9); Mean Corpuscular HGB Conc 30.6 g/dl (31.0-35.0); Mean Corpuscular Hemoglobin 25.7 pg (27.0-33.0); Mean Corpuscular Volume 84.1 fL (80.0-98.0); NRBC Abs Auto 0.000 X10*3/uL (0.0-0.012); NRBC Pct Auto 0.0 /100WBC (0.0-0.2); Platelet Count 317 X10*3/uL (160-400); Red Blood Count 4.08 X10*6/uL (4.20-5.50); White Blood Count 4.7 X10*3/uL (4.8-10.8)
[2025-05-20 17:03] LABS: Ferritin 5 ng/mL (10-122); Free T4 (Free Thyroxine) 1.14 ng/dL (0.71-1.85); Thyroid Stimulating Hormone 0.86 uIU/mL (0.32-4.0)
[2025-05-20 17:11] LABS: Folate 10.9 ng/mL (> or = 4.0); Vitamin B12 414 pg/mL (200-900)
[2025-05-20 17:15] LABS: Anion Gap 14 (12-20)
[2025-05-20 17:19] LABS: Blood Urea Nitrogen 10 mg/dL (9-16); Calcium 9.1 mg/dL (8.4-10.2); Carbon Dioxide 26 mmol/L (22-29); Chloride 106 mmol/L (96-108); Estimated Glomerular Filt Rate > 60; Iron 35 mcg/dL (30-160); Percent Iron Saturation 9 % (15-50); Potassium 3.6 mmol/L (3.3-5.1); Sodium 142 mmol/L (135-145); Total Iron Binding Capacity 394 mcg/dL (228-428); Unsaturated Iron Binding 359 ug/dL
--- OUTSIDE RECORDS SUMMARY | 2025-05-20 18:29 | XMS_ITS | Encounter Summary ---
Author Organization [employer] Address [address] [facility] [address] [place] [address] Care Team Providers Care Procurement Accountant Name Role Phone [facility] Primary Care Provider [phone] Encounter Details Date Type Department Care Team (Latest Contact Info) Description 05/20/2025 Travel Social History Tobacco Use Types Packs/Day [...] as of this encounter Plan of Treatment Upcoming Encounters Date Type Department Care Team (Late st Contact Info) Description 07/08/2025 9:15 AM EST Procedure Visit [facility] [address] [place] [address] Carolina Rodriguez FNP [address] [place] [address] documented as of this encounter Visit Diagnoses Not on filedocumented in this encounter Additional Health Concerns Assessment Noted Time PHQ-9 Depression Total Score: 0 09/11/19 25 2:06 PM EDT documented as of this encounter Care Teams Procurement Accountant Relationship Specialty Start Date End Date Carolina Rodriguez FNP [address] [place] [address] PCP - General Family Medicine 01/20/22 documented as of this encounter
--- OUTSIDE RECORDS SUMMARY | 2025-05-20 18:30 | XMS_ITS | Encounter Summary ---
Author Organization [employer] Address [address] [facility] 7t [place] [address] Care Team Providers Care Medical Territory Manager Name Role Phone [place] DOCTOR OF VETERINARY MEDICINE Primary Care Provider [phone] Reason for Visit * Reason Comments Med Refill Encounter Details Date Type Department Care Team ([facility] st Contact Info) Description 05/02/2023 Refill [facility] [address] [place] [address] April Gaviria MD [address] [place] [address] Social History Tobacco Use Types Packs/Day Years [...] Description 07/08/2025 9:15 AM EST Procedure Visit [facility] [address] [place] [address] Carolina Rodriguez FNP [address] [place] [address] documented as of this encounter Visit Diagnoses Not on filedocumented in this encounter Additional Health Concerns Assessment Noted Time PHQ-9 Depression Total Score: 0 04/06/20 23 10:05 AM EDT documented as of this encounter Care Teams Medical Territory Manager Relationship Specialty Start Date End Date Carolina Rodriguez FNP [address] [place] [phone] PCP - General Family Medicine 01/20/22 documented as of this encounter
--- OUTSIDE RECORDS SUMMARY | 2025-05-20 18:30 | XMS_ITS | Encounter Summary ---
Author Organization [employer] Address [address] [facility] 7t [place] [address] Care Team Providers Care Lining Finisher Name Role Phone [facility] Primary Care Provider [phone] Reason for Visit * Reason Onset Date Comments Nurse Triage 05/15/2025 Encounter Details Date Type Department Care Team ([facility] st Contact Info) Description 05/15/2025 Telephone [facility] [address] [place] [address] [facility] [address] [place] [address] Nurse Triage Social History Tobacco Use Types Packs/Day Years [...] encounter Miscellaneous Notes * Telephone Encounter - Shalom Ruby RN - 05/15/2025 2:37 PM EST TC placed to patient. Patient c/o intermittent dizziness x few days. Patient denies any other symptoms. RN advised patient to come to [facility], patient declined and asked for an appt with her PCP. RN scheduled an appt. RN advised patient if her symptoms worsen before her appt to go to theED for further evaluation. Patient verbalized understanding. Protocol Used: Dizziness (Adult) Protocol-Based Disposition: See in Office or Video Visit Today Video visit offer not recorded Positive Triage Questions: * Patient wants to be seen * Mild dizziness (e.g., walking normally) and has NOT been evaluated by physician for this (Exception: Dizziness caused by heat exposure, sudden standing, or poor fluid intake.) * Dizziness caused by not drinking enough fluids * Dizziness caused by sudden or prolonged standing * All higher-acuity triage questions were negative. Care Advice Discussed: * Reassurance and Education - Dizziness From Standing * Sit Up Slowly Before Standing * Lie Down and Rest * Cool Off * Prevention - Dizziness * Reasons To Call Back - After 2 hours of rest and fluids and you are still feeling dizzy - You pass out (faint) or are too weak to stand - You become worse * Telephone Encounter - Scarlet Contreras - 05/15/2025 11:15 AM EST Symptom: Dizziness Outcome: Schedule an appointment to be seen within 24 hours Reason: Caller denied all higher acuity questions The caller accepted this outcome. Contact pt at [phone] documented in this encounter Plan of Treatment Upcoming Encounters Date Type Department Care Team (Late st Contact Info) Description 07/08/2025 9:15 AM EST Procedure Visit [facility] [address] [place] [address] Carolina Rodriguez FNP [address] [place] [address] documented as of this encounter Visit Diagnoses Not on filedocumented in this encounter Additional Health Concerns Assessment Noted Time PHQ-9 Depression Total Score: 0 09/11/19 25 2:06 PM EDT documented as of this encounter Care Teams Lining Finisher Relationship Specialty Start Date End Date Carolina Rodriguez FNP [address] [place] [address] PCP - General Family Medicine 01/20/22 documented as of this encounter
--- OUTSIDE RECORDS SUMMARY | 2025-05-20 18:30 | XMS_ITS | Clinical Summary ---
Author Organization [employer] Address [address] [facility] 7t [place] [address] Care Team Providers Care Thread Milling Machine Set Up Operator Name Role Phone [facility] Primary Care Provider [phone] Allergies No known active allergies Medications Arnuity Ellipta 100 MCG/ACT inhaler INHALE 1 PUFF BY MOUTH EVERY DAY AT THE SAME TIME RINSE MOUTH AFTER USING 30 each 04/18/20 25 Active albuterol (Ventolin HFA) 108 (90 Base) MCG/ACT inhalerIndicatio ns:Mild persistent asthma without complication INHALE 2 PUFFS BY MOUTH EVERY 4 HOURS NEEDED FOR WHEEZING OR SHORTNESS OF BREATH 18 g 04/18/20 25 Active cetirizine (ZyrTEC) 10 MG tabletIndication s:Mild persistent asthma without complication TAKE 1 TABLET BY MOUTH EVERY DAY NEEDED FOR ALLERGIES 90 tablet 04/18/20 25 Active ferrous gluconate (Fergon) 324 (38 Fe) MG tabletIndication s:Menorrhagia with regular cycle TAKE 1 TABLET BY MOUTH EVERY DAY IN THE MORNING 90 tablet 1 05/08/20 25 Active ferrous gluconate (Fergon) 324 (38 Fe) MG tabletIndication s:Menorrhagia with regular cycle Take 1 tablet (324 mg) by mouth in the morning. 90 tablet 1 09/13/19 25 025 Discontinued Active Problems Problem Noted Date Diagnosed Date Allergic rhinitis 02/07/2023 Iron deficiency anemia 07/19/2022 Overview (07/19/2022): Seen by Dr. Downs in heme/onc 01/2022 d/t reported family hx of bleeding disorer. Negative von willebrand work up. Per visit note low suspicion for coagulopathy and no further evaluation indicated. Menorrhagia with regular cycle 07/19/2022 Overview (09/07/2023): Junel Fe 07/16mcg daily-discontinued d/t side effects Oral iron supplementation Cognitive developmental delay 07/13/2022 Vitamin D deficiency 07/13/2022 Mild persistent asthma 09/11/2015 Overview (02/17/2023): Flovent b.i.d Albuterol PRN Encounters Date Type Department Care Team Description 05/20/2025 11:45 AM EST Office Visit [facility] [address] [place] [address] Reena Lacy DO Dizziness (Primary Dx) 05/20/2025 Travel 05/15/2025 Telephone [facility] [address] [place] [address] Carolina Rodriguez FNP Nurse Triage 05/13/2025 Telephone [facility] [address] [place] [address] Carolina Rodriguez FNP alexandre recall 05/07/2025 Refill [facility] [address] [place] [address] Carolina Rodriguez FNP Menorrhagia with regular cycle 04/18/2025 Refill [facility] [address] [place] [address] Neida Craft MD Mild persistent asthma without complication 04/18/2025 Refill [facility] [address] [place] [address] Violetta Foote FNP Mild persistent asthma without complication 03/26/2025 Telephone [facility] [address] [place] [address] Carolina Rodriguez FNP Tspot request from Last 3 Months Immunizations Immunization Administration [...] Mass Index 20.58 05/20/2025 11:46 AM EST Plan of Treatment Upcoming Encounters Date Type Department Care Team (Late st Contact Info) Description 07/08/2025 9:15 AM EST Procedure Visit [facility] [address] [place] [address] [facility], [facility] [address] [place] [address] Health Maintenance Due Date Last Done Comments [...] Screening 09/10/2025 09/10/2024, 09/11/19 25 Tobacco Screening 05/20/2026 05/20/2025 DTaP/Tdap/Td Vaccines (7 - Td or Tdap) [...] Diagnosis Comments CBC WITH AUTO DIFFERENTIAL Routine 05/20/2025 1:44 PM EST Dizziness BASIC METABOLIC PANEL Routine 05/20/2025 1:44 PM EST Dizziness T4, FREE Routine 05/20/2025 1:44 PM EST Dizziness TSH Routine 05/20/2025 1:44 PM EST Dizziness VITAMIN D,25-OH,TOTAL,IA Routine 05/20/2025 1:44 PM EST Dizziness IRON AND TOTAL IRON BINDING CAPACITY Routine 05/20/2025 1:44 PM EST Dizziness FERRITIN Routine 05/20/2025 1:44 PM EST Dizziness VITAMIN B12/FOLATE, SERUM PANEL Routine 05/20/2025 1:44 PM EST Dizziness POCT , URINE Routine 05/20/2025 12:18 PM EST Dizziness T-SPOT(R).TB Routine 03/26/2025 10:27 AM EDT Encounter for screening for respiratory tuberculosis from Last 3 Months Results * (ABNORMAL) Vitamin D, 25-Hydroxy, Total, Immunoassay (05/20/2025 1:44 PM EST) [facility] Vitamin D 25-OH Total 12.4(L) >30 ng/mL [facility] Comment: Health Based Reference Values*< 20 ng/mL [id number] ng/mL Insufficient> 30 ng/mL Sufficient*Kike HATCH. N [...] 1:44 PM EST 05/20/2025 3:57 PM EST [facility] BLOOD ORDERABLES Final R esult Performing Organization Address [facility] Co de Phone Number [facility] [address] [place] [phone] * Vitamin B12 (Cobalamin) and Folate Panel, Serum (05/20/2025 1:44 PM EST) [facility] Vitamin B12 414 200 - 900 pg/mL [facility] Comment:NORMAL 200-900 PG/ML INDETERMINATE 160-199 PG/ML DEFICIENT < 160 PG/ML Folate 10.9 > or = 4.0 ng/mL [facility] Comment:Reference Values:> o r = 4.0 ng/mL< 4.0 ng/mL suggests folate deficiency Methotrexate, aminopterin and folinic acid(leucovorin) are chemotherapeutic agents whose molecularstructures are similar to folate; therefore, the Architectfolate assay cannot be used for patients using these drugs. Blood 05/20/2025 1:44 PM EST 05/20/2025 3:57 PM EST Reena Lacy LAB BLOOD ORDERABLES Final R esult Performing Organization Address [facility] Co de Phone Number [facility] [address] [place] [phone] * (ABNORMAL) CBC auto differential (05/20/2025 1:44 PM EST) [facility] White Blood Count 4.7(L) 4.8 - 10.8 X10*3/uL [facility] Red Blood Count 4.08(L) 4.20 - 5.50 X10*6/uL [facility] Hemoglobin 10.5(L) 12.0 - 16.0 g/dl [facility] Hematocrit 34.3(L) 37.0 - 47.0 % [facility] Mean Corpuscular Volume 84.1 80.0 - 98.0 fL [facility] Mean Corpuscular Hemoglobin 25.7(L) 27.0 - 33.0 pg [facility] Mean Corpuscular HGB Conc 30.6(L) 31.0 - 35.0 g/dl [facility] Red Cell Distribution Width 14.8 11.0 - 16.0 % [facility] Platelet Count 317 160 - 400 X10*3/uL [facility] Mean Platelet Volume 11.8 9.4 - 12.3 fL [facility] Neutrophils Percent Auto 27.3(L) 45 - 73 % [facility] Imm Gran Pct Auto 0.2 0.0 - 0.4 % [facility] Lymphocytes Percent Auto 50.1(H) 20 - 40 % [facility] Monocytes Percent Auto 9.3 2 - 11 % [facility] Eosinophils Percent Auto 11.0(H) 0 - 4 % [facility] Basophils Percent Auto 2.1(H) 0 - 2 % [facility] NRBC Pct Auto 0.0 0.0 - 0.2 /100WBC [facility] Neutrophils Absolute Auto 1.3(L) 2.0 - 8.3 x10*3/uL [facility] Imm Gran Abs Auto 0.01 0.00 - 0.03 X10*3/uL [facility] Lymphocytes Absolute Auto 2.4 1.2 - 4.9 X10*3/uL [facility] Monocytes Absolute Auto 0.4 0.1 - 1.2 X10*3/uL [facility] Eosinophils Absolute Auto 0.5(H) 0.0 - 0.4 X10*3/uL [facility] Basophils Absolute Auto 0.1 0.0 - 0.2 X10*3/uL [facility] NRBC Abs Auto 0.000 0.0 - 0.012 X10*3/uL [facility] Blood Venous blood specimen / Unknown 05/20/2025 1:44 PM EST 05/20/2025 3:57 PM EST Reena Lacy DO LAB BLOOD ORDERABLES Final R esult Performing Organization Address City/[facility] Co de Phone Number [facility] [address] [place] [address] [phone] * (ABNORMAL) Iron And Total Iron Binding Capacity (05/20/2025 1:44 PM EST) Iron 35 30 - 160 mcg/dL [facility] Total Iron Binding Capacity 394 228 - 428 mcg/dL [facility] Percent Iron Saturation 9(L) 15 - 50 % [facility] Unsaturated Iron Binding 359 ug/dL [facility] Blood Venous blood specimen / Unknown 05/20/2025 1:44 PM EST 05/20/2025 3:57 PM EST Reena Lacy DO LAB BLOOD ORDERABLES Final R esult Performing Organization Address [facility] Co de Phone Number [facility] [address] [place] [phone] * TSH (05/20/2025 1:44 PM EST) Thyroid Stimulating Hormone 0.86 0.32 - 4.0 uIU/mL [facility] Comment:TSH 3rd Generation ( [facility]) Blood Venous blood specimen / Unknown 05/20/2025 1:44 PM EST 05/20/2025 3:57 PM EST Reena Lacy DO LAB BLOOD ORDERABLES Final R esult Performing Organization Address City/[facility]/ZIP Co de Phone Number [facility] [address] [place] [phone] * T4, Free (05/20/2025 1:44 PM EST) Free T4 (Free Thyroxine) 1.14 0.71 - 1.85 ng/dL [facility] Blood Venous blood specimen / Unknown 05/20/2025 1:44 PM EST 05/20/2025 3:57 PM EST Reena Regino LAB BLOOD ORDERABLES Final R esult Performing Organization Address [facility] Co de Phone Number [facility] [address] [place] [address] [phone] * (ABNORMAL) Ferritin (05/20/2025 1:44 PM EST) [facility] Ferritin 5(L) 10 - 122 ng/mL [facility] Blood Venous blood specimen / Unknown 05/20/2025 1:44 PM EST 05/20/2025 3:57 PM EST Reena Lacy LAB BLOOD ORDERABLES Final R esult Performing Organization Address [facility] Co de Phone Number [facility] [address] [place] [phone] * Basic Metabolic Panel (05/20/2025 1:44 PM EST) [facility] Sodium 142 135 - 145 mmol/L [facility] Potassium 3.6 3.3 - 5.1 mmol/L [facility] Chloride 106 96 - 108 mmol/L [facility] Carbon Dioxide 26 22 - 29 mmol/L [facility] Anion Gap 14 12 - 20 [facility] Urea Nitrogen (BUN) 10 9 - 16 mg/dL [facility] Creatinine, Serum 0.79 0.5 - 1.4 mg/dL [facility] Estimated Glomerular Filt Rate >60 [facility] Comment:Chronic Kidney Disea se: Estimated GFR < 60 mL/min/[id number] Kidney Disease: Estimated GFR < 15 mL/min/1.73m2 Glucose 64 60 - 115 mg/dL [facility] Calcium 9.1 8.4 - 10.2 mg/dL [facility] Blood Venous blood specimen / Unknown 05/20/2025 1:44 PM EST 05/20/2025 3:57 PM EST Reena Lacy DO LAB BLOOD ORDERABLES Final R esult [facility] [address] [place] [phone] [phone] * POCT Urine (05/20/2025 12:18 PM EST) Preg Test, Ur Negative Negative, Indeterminate, None Detected, Trace, 3+, Specimen unsatisfactory for evaluation, Weakly Positive, 1+, 2+ QC Media Lot # [id number] Lot# Expiration Date [id number] Urine 05/20/2025 12:1 8 PM EST Reena Lacy DO POINT OF CARE TEST ENTER/PRINCE T ORDERABLES Final Result * T-SPOT??.TB (03/26/2025 10:27 AM EDT) T Spot TB Negative Negative [facility] Comment:A negative test resu lt does not exclude the possibilityof exposure to or infection with Mycobacteriumtuberculosis (M. tuberculosis). Patients with recentexposure to TB infected individuals exhibiting anegative T-SPOT.TB result should be considered forretesting within 6 weeks or if other relevant clinicalsymptoms indicate. Results from T-SPOT.TB testing mustbe used in conjunction with each individual'sepidemiological history, current medical status,and results of other diagnostic evaluations.The T-SPOT.TB test is qualitative and results arereported as positive, borderline, or negative, giventhat the test controls perform as expected. In linewith the Centers for Disease Control and Prevention's2010 recommendation to report quantitative measurementsalongside the qualitative result, the laboratoryprovides spot counts for informational purposes only.The T-SPOT.TB test should not be interpreted as aquantitative test. TS PANEL A 4 [facility] TS PANEL B 0 [facility] Negative Control Passed [facility] Positive Control Passed [facility] Comment:For additional infor margarita, please refer tohttp://education.SET/faq/UVH436(This link is being provided for informational/educational purposes only.)THIS TEST WAS PERFORMED AT:[employer] [id number] [place] [id number] IQBAL MD,PHD 03/26/2025 10:2 7 AM EDT 03/26/2025 11:50 AM EDT [facility] STRAWHAT BLOCKING OPERATOR LAB BLOOD ORDERABLES Final Re sult [facility] [address] [place] [phone] from Last 3 Months [facility] Care Teams Thread Milling Machine Set Up Operator Relationship Specialty Start Date End Date [place], [facility] [address] [facility] [place] [phone] PCP - General Family Medicine 01/20/22
--- OUTSIDE RECORDS SUMMARY | 2025-05-20 18:30 | XMS_ITS | Encounter Summary ---
Author Organization [employer] Address [address] [facility] 7[address] [place] [address] Care Team Providers Care Index Editor Name Role Phone Carolina Rodriguez [facility] Primary Care Provider [phone] Encounter Details Date Type Department Care Team (Late Contact Info) Description 10/06/2022 Orders Only [facility] [address] [place] [address] Reena Landaverde LPN Social History Tobacco Use [...] Encounters Date Type Department Care Team (Late Contact Info) Description 07/08/2025 9:15 AM EST Procedure Visit [facility] [address] [place] [address] [place] [facility] [address] [place], [place] [phone] documented as of this encounter Visit Diagnoses Not on filedocumented in this encounter Additional Health Concerns Assessment Noted Time PHQ-9 Depression Total Score: 0 07/13/19 23 2:17 PM EST documented as of this encounter Care Teams Index Editor Relationship Specialty Start Date End Date Carolina Rodriguez FNP [address] [place] [address] PCP - General Family Medicine 01/20/22 documented as of this encounter
--- OUTSIDE RECORDS SUMMARY | 2025-05-20 18:30 | XMS_ITS | Encounter Summary ---
Author Organization [employer] Address [address] [facility] [address] [place] [address] Care Team Providers Care Incising Machine Operator Name Role Phone [place] MILK DRYING MACHINE OPERATOR Primary Care Provider [phone] Reason for Visit * Reason Comments Med Refill Encounter Details Date Type Department Care Team ([facility] st Contact Info) Description 08/15/2024 Refill [facility] [address] [place] [address] Neida Craft MD [address] [place] [address] Ingrown toenail of left foot Social History [...] Description 07/08/2025 9:15 AM EST Procedure Visit [facility] [address] [place] [address] [place] [facility] [address] [place] [address] documented as of this encounter Visit Diagnoses Diagnosis Ingrown toenail of left foot documented in this encounter Additional Health Concerns Assessment Noted Time PHQ-9 Depression Total Score: 0 09/07/19 24 2:18 PM EDT documented as of this encounter Care Teams Incising Machine Operator Relationship Specialty Start Date End Date Carolina Rodriguez FNP [address] [place] [address] PCP - General Family Medicine 01/20/22 documented as of this encounter
== END 2025-05-20 13:40 | disposition home or self-care (01) ==
LOC: HO.HHCL 13:39
PROVIDERS: PCP Registered Nurse; Visit Provider Family Medicine
DX: R42 Dizziness and giddiness (principal)
CPT/HCPCS: 36415; 80048; 82306; 82607; 82728; 82746; 83540; 84439; 84443; 85025